=== PATIENT | female | born 1990 | race Caucasian/White ===

== ENCOUNTER 2023-07-22 21:06 | Emergency (ER) | payer OTHER ==
[~2023-07-22] VITALS: Ht 165.1 cm; Wt 77.1 kg
[2023-07-22 21:17] VITALS: BP 121/61; PULSE 83; RESP 18; TEMP 98; O2SAT 100
[2023-07-22 22:15] VITALS: BP 104/54; PULSE 73; RESP 20; O2SAT 95
[2023-07-22] MEDS ORDERED: IBUP-2213 PO (22:24)
[2023-07-22] MEDS ORDERED: ACET-8905 PO (22:24)
[2023-07-22] MEDS: KETOROLAC 60 MG/2 ML VIAL IM ONE (22:30)
== END 2023-07-22 23:17 | disposition home or self-care (01) ==
LOC: MED 21:06
DX: M54.50 Low back pain, unspecified (principal); Z88.8 Allergy status to other drugs, medicaments and biological substances; Z79.899 Other long term (current) drug therapy
CPT/HCPCS: 81002; 81025; 96372; 99283; J1885

== ENCOUNTER 2023-10-10 20:32 | Emergency (ER) | payer OTHER ==
[~2023-10-10] VITALS: Ht 162.6 cm; Wt 65.8 kg
[~2023-10-10 20:32] MED LIST: ACET-8905 PO; IBUP-2213 PO
[2023-10-10 20:51] VITALS: BP 134/83; PULSE 103; RESP 18; TEMP 97.6; O2SAT 98
[2023-10-10] MEDS: ONDANSETRON 4 MG ODT PO ONE (21:29)
[2023-10-10] MEDS: KETOROLAC 60 MG/2 ML VIAL IM ONE (21:30)
[2023-10-10] MEDS ORDERED: PRED20TA5 PO (21:37)
[2023-10-10] MEDS ORDERED: ONDA8TAB87 PO (21:37)
[2023-10-10 21:49] VITALS: BP 134/83; PULSE 100; RESP 18; TEMP 97.6; O2SAT 98
== END 2023-10-10 21:49 | disposition home or self-care (01) ==
LOC: MED 20:32
DX: R05.9 Cough, unspecified (principal); J02.9 Acute pharyngitis, unspecified; R11.2 Nausea with vomiting, unspecified; R19.7 Diarrhea, unspecified; R03.0 Elevated blood-pressure reading, without diagnosis of hypertension; Z86.69 Personal history of other diseases of the nervous system and sense organs; Z79.1 Long term (current) use of non-steroidal anti-inflammatories (NSAID); Z88.8 Allergy status to other drugs, medicaments and biological substances
CPT/HCPCS: 81025; 96372; 99283; J1885; Q0162

== ENCOUNTER 2024-01-06 11:39 | Emergency (ER) | payer OTHER ==
[~2024-01-06] VITALS: Ht 162.6 cm; Wt 75.7 kg
[~2024-01-06 11:39] MED LIST changes: +ONDA8TAB87 PO; +PRED20TA5 PO
[2024-01-06 11:50] VITALS: BP 116/73; PULSE 95; RESP 18; TEMP 98.3; O2SAT 99
[2024-01-06 12:30] VITALS: O2SAT 99
[2024-01-06] MEDS: POLYETHYLENE GLYCOL 17 GM/PKT PO ONE (13:19)
[2024-01-06 13:20] LABS: APPEARANCE,URINE CLEAR (CLEAR); BILIRUBIN,URINE 1+ (NEGATIVE); BLOOD, URINE NEGATIVE (NEGATIVE); COLOR,URINE YELLOW (YELLOW); LEUKOCYTE ESTERASE ,URINE TRACE (NEGATIVE); NITRITE, URINE NEGATIVE (NEGATIVE); PH,URINE 6.5 (5.0-9.0); PROTEIN,URINE NEGATIVE (NEGATIVE); UGLUCOSE NEGATIVE (NEGATIVE)
[2024-01-06] MEDS: MINERAL OIL 135 ML ENEM RC ONE (13:30)
[2024-01-06 13:57] LABS: ICTOTEST NEGATIVE (NEGATIVE)
[2024-01-06 13:58] LABS: BACTERIA,URINE FEW /HPF (None Seen); RBC,URINE 0-5 /HPF (0-5); SQUAMOUS EPITHELIAL CELL,UR 0-3 (FEW) /LPF (0-3 (FEW)); WBC,URINE 0-5 /HPF (0-5)
[2024-01-06 14:00] VITALS: BP 112/72; PULSE 88; RESP 18; TEMP 98.2
[2024-01-06] MEDS: levETIRAcetam 500 MG TAB PO ONE (14:07)
[2024-01-06 14:30] VITALS: O2SAT 99
[2024-01-06] MEDS ORDERED: ONDA-188 SL (15:25)
[2024-01-06] MEDS ORDERED: MIRABULK PO (15:25)
== END 2024-01-06 15:42 | disposition home or self-care (01) ==
LOC: MED 11:39
DX: K59.00 Constipation, unspecified (principal); R11.2 Nausea with vomiting, unspecified; Z86.69 Personal history of other diseases of the nervous system and sense organs; Z79.899 Other long term (current) drug therapy; Z88.8 Allergy status to other drugs, medicaments and biological substances
CPT/HCPCS: 81001; 81025; 93005; 99284